=== PATIENT | female | born 1935 | race Caucasian/White ===

== ENCOUNTER 2016-09-26 10:30 | Outpatient (CLI) | payer MEDICARE, OTHER ==
[2015-09-18 06:17] VITALS: BP 133/76
--- NOTE | 2016-09-26 14:29 | Diagnostic Imaging Report ---
[facility] [address] [facility] [address] Report Submission Date: Sep 26, 2016 2:01:33 PM [employer] Patient Study Name: SHREYAS MURRAY Date: Sep 26, 2016 10:36:20 AM [employer] MRN: [id number] Modality Type: CR Gender: F Description: CHEST : 37 Institution: [facility] Physician REGGIE UNGER - OP Chest -two views CLINICAL HISTORY: Night sweats for 3 weeks. FINDINGS: Examination the chest in PA and lateral views with no prior examination for comparison demonstrates the lungs to be clear. Cardiovascular and mediastinal silhouettes are within normal limits for the patient's age. The aorta is atherosclerotic. Degenerative changes are seen in the thoracic vertebrae. IMPRESSION: Aortic atherosclerosis. No active disease. Electronically signed on Sep 26, 2016 2:01:33 PM LEGAL INTERNSHIP by: Zaheer CARRILLO
== END 2016-09-26 10:32 ==
LOC: RAD 10:30
PROVIDERS: ATTEND Family Medicine
DX: I70.0 Atherosclerosis of aorta (principal); R61 Generalized hyperhidrosis
CPT/HCPCS: 71020

== ENCOUNTER 2016-11-21 15:38 | Outpatient (CLI) | payer MEDICARE, OTHER ==
[2015-09-18 06:17] VITALS: BP 133/76
== END 2016-11-21 15:40 ==
LOC: LAB 15:38
PROVIDERS: ATTEND Family Medicine
DX: E03.9 Hypothyroidism, unspecified (principal)
CPT/HCPCS: 36415; 84443

== ENCOUNTER 2017-02-05 16:05 | Emergency (ER) | payer MEDICARE, OTHER ==
--- NOTE | 2017-02-05 18:00 | Diagnostic Imaging Report ---
[facility] [address] [facility].[address] [address] Report Submission Date: Feb 05, 2017 5:49:05 PM CDT Patient Study Name: SHREYAS MURRAY Date: Feb 05, 2017 5:14:03 PM CDT MRN: [id number] Modality Type: CR Gender: F Description: UPPER EXTREMITY : 37 Institution: [facility] Physician: ARSLAN SINGH - COLLEEN Right elbow 3 views Clinical history: Trauma There is soft tissue laceration the outer aspect of the right elbow . no visible fractures, dislocation or bone destruction . semi radiopaque 1 cm foreign bodies seen at the ulnar aspect of the elbow. Impression: Soft tissue laceration with possible radiopaque foreign body without visible fractures or bone destruction Electronically signed on Feb 05, 2017 5:49:05 PM CDT by: Bernard CARRILLO
--- NOTE | 2017-02-05 18:00 | Diagnostic Imaging Report ---
[facility] [address] [facility].[address] [address] Report Submission Date: Feb 05, 2017 5:50:10 PM CDT Patient Study Name: SHREYAS MURRAY Date: Feb 05, 2017 5:23:32 PM CDT MRN: [id number] Modality Type: CR Gender: F Description: PELVIS : 37 Institution: [facility] Physician: ARSLAN SINGH Right hip AP and oblique views Clinical history: Trauma Total right hip prostheses is noted and appear to be in good position. No fracture, dislocation or bone destruction . Impression: Total right hip prosthesis without visible fractures Electronically signed on Feb 05, 2017 5:50:10 PM CDT by: Bernard CARRILLO
--- NOTE | 2017-02-05 18:36 | ED Physician Documentation ---
Fall - HISTORIAN Historian: patient, spouse - [facility] Chief Complaint: Fall Additional Information: FELL; AT [facility] WHILE WALKING DOG W/[address] RASH SKIN SLIPPAGE RT ELBOW AND FOREARM AND W/PAIN RT HIP-HAD TOTAL HIP REPLACEMENT APPROX 1 YEAR AGO. ABLE TO GET UP FROM FALL AND WALK SATIS BUT W/PAIN IN THE HIP. ELBOW SL PAINFUL Onset: other Context: tripped, lost balance r: moderate Associated Symptoms:: no loss of consciousness Location of Pain/Injury: denies: head, neck, face Injury to Right Extremity: elbow, hip - ROS CONST: no problems. denies: recent illness, weakness NEURO: denies: dizziness MS/SKIN/LYMPH: other ([address] RASH RT ELBOW AND FOREARM). denies: weakness , numbness, neck pain, back pain, ankle swelling, leg swelling, rash CVS/RESP: none. denies: chest pain, shortness of breath - PAST HX Past History: other (HTN VARICOSE VEINS LO THRYOID GERD ) Allergies/Adverse Reactions: Allergies Allergy/AdvReac Type Severity Reaction Status Date / Time gabapentin Allergy Face Verified 09/11/15 14:43 Swelling ciprofloxacin [From Cipro] AdvReac Mild nausea Verified 09/09/15 15:37 ciprofloxacin HCl AdvReac Mild nausea Verified 09/09/15 15:37 [From Cipro] levofloxacin AdvReac Mild nausea Verified 09/09/15 15:37 Home Medications: Ambulatory Orders Medication Instructions Recorded Levothyroxine Sodium [Synthroid] 50 mcg PO D 09/03/15 Omeprazole [Prilosec] 20 mg PO D 09/03/15 - SOCIAL HX Smoking History: non-smoker Alcohol Use: none Drug Use: none - FAMILY HX Family History: no significant history - VITAL SIGNS Vital Signs: Vital Signs Temp Pulse Resp BP Pulse Ox 133/76 09/18/15 08:00 - REVIEWED ASSESSMENTS Nursing Assessment Reviewed: Yes Vitals Reviewed: Yes ED Results Lab/Radiology - Radiology Radiology Impressions: no fracture hip or elbow however rad sees possible foriegn body in skin tear lesion elbow. pt req [facility] for surgical consul and repoair. called DR RAMIREZ he will acccept for care. Fall Physical Exam - Physical Exam General Appearance: mild distress, moderate distress Head: non-tender, no swelling, no obvious injury Neck: non-tender, painless ROM Eye: AMANDA, EOMI ENT: nml external inspection Resp/CVS: chest non-tender, breath sounds nml, no resp. distress, heart sounds nml Abdomen: soft, non-tender Neuro: oriented x3, sensation nml, motor nml, mood/affect nml Skin: no rash, other ( AFOREMENTIONED) Back: normal inspection Joint: nml ROM (ELBOW SL STIFF AND PAINFUL TO MOTION-CONCERNED RE HIP) - [place] Coma Score Eyes Open: Spontaneous Speech: Oriented Motor: Obeys Commands Discharge Clincal Impression: fall w/hip and elbow injury, possible rad opaque for body elbow lacer, ation Referrals: Javi Mondragon MD [Primary Care Provider] - 2 Days Additional Instructions: pt req tns[facility] DR RAMIREZ for eval and group home Medications: Ambulatory Orders Levothyroxine Sodium [Synthroid] 50 mcg PO D 09/03/15 Omeprazole [Prilosec] 20 mg PO D 09/03/15 Condition: Good Disposition: 02 XFER [facility] Decision to Admit: NO Decision Time: 18:34
[2017-02-05] MEDS: traMADol HCL 50 MG TABLET PO ONE (18:40)
[2017-02-05 19:23] VITALS: BP 186/98
== END 2017-02-05 18:40 | disposition short-term general hospital (02) ==
LOC: ED 16:05
DX: S51.021A Laceration with foreign body of right elbow, initial encounter (principal); W20.8XXA Other cause of strike by thrown, projected or falling object, initial encounter; Y93.K1 Activity, walking an animal; Y99.9 Unspecified external cause status
CPT/HCPCS: 73080; 73502; 99283

== ENCOUNTER 2017-06-05 15:00 | Outpatient (CLI) | payer MEDICARE, OTHER ==
[2017-06-05 15:24] LABS: EOSINOPHILS % 2.6 % (0.0-6.8); MEAN CORPUSCULAR HEMOGLOBIN 30.3 pg (28.0-34.0); MEAN CORPUSCULAR VOLUME 91.8 fl (80.0-100.0); MONOCYTES % 4.1 % (0.0-11.0); NEUTROPHILS # 2.3 # k/uL (1.4-7.7)
[2017-06-05 16:03] LABS: eGFR (African) > 60; eGFR (Non-African) > 60
== END 2017-06-05 15:03 ==
LOC: LAB 15:00
PROVIDERS: ATTEND Family Medicine
DX: E03.9 Hypothyroidism, unspecified (principal); Z00.00 Encounter for general adult medical examination without abnormal findings
CPT/HCPCS: 36415; 80053; 80061; 83036; 84443; 85025

== ENCOUNTER 2017-10-10 14:01 | Outpatient (CLI) | payer MEDICARE, OTHER | END 2017-10-10 14:15 | LOC: POD 14:01 | PROVIDERS: ATTEND Podiatrist | DX: M20.42 Other hammer toe(s) (acquired), left foot (principal); G60.3 Idiopathic progressive neuropathy; L84 Corns and callosities | CPT/HCPCS: G0463 ==

== ENCOUNTER 2018-04-12 08:53 | Outpatient (CLI) | payer MEDICARE, OTHER ==
[2018-04-12 09:33] LABS: eGFR (Non-African) > 60
--- NOTE | 2018-04-12 18:14 | Diagnostic Imaging Report ---
REGGIE UNGER [facility] [address] [facility] [address] [address] Report Submission Date: Apr 12, 2018 12:22:59 PM CDT Patient Study Name: SHREYAS MURRAY Date: Apr 12, 2018 9:34:39 AM CDT Modality Type: CT Gender: F Description: CT ABD PELVIS W/ CON : 37 Institution: [facility] Physician: REGGIE UNGER CT abdomen and pelvis with contrast History: Generalized abdominal pain, worse after eating Technique: Helically acquired images were obtained from the hemidiaphragms to the pelvic floor following IV but no oral contrast. Findings: Clips from a cholecystectomy are present. The liver, especially the left hepatic lobe, is mildly enlarged. No focal hepatic masses are noted and there is no intrahepatic biliary ductal dilatation. No pancreatic abnormalities are noted. The spleen, adrenal glands and the left kidney are unremarkable. Projecting exophytically from the upper pole of the right kidney, there is a 4.5 cm simple cyst. The patient is cachectic. Small and large bowel loops are normal in caliber. The abdominal aorta is atherosclerotic but not aneurysmal. Assessment through the pelvis is limited secondary to beam hardening artifact associated with a right hip replacement. There is moderate dextroscoliosis of the thoracolumbar spine. There is moderate disc space narrowing at L3/4. Vertebral body height is maintained. Impression: The patient is cachectic with no intra-abdominal or intrapelvic fat which could limit assessment for subtle inflammatory processes. Mild hepatomegaly, especially of the left hepatic lobe. Status post cholecystectomy. Simple 4.5 cm right renal cyst. Aortic atherosclerosis. Assessment through the pelvis is limited secondary to beam hardening artifact associated with a right hip replacement. Electronically signed on Apr 12, 2018 12:22:59 PM CDT by: Radha CARRILLO
== END 2018-04-12 08:54 ==
LOC: RAD 08:53
PROVIDERS: ATTEND Family Medicine
DX: R10.84 Generalized abdominal pain (principal); R62.7 Adult failure to thrive; Z13.9 Encounter for screening, unspecified
CPT/HCPCS: 36415; 74177; 82565; Q9967

== ENCOUNTER 2018-04-30 10:27 | Day surgery (SDC) | payer MEDICARE, OTHER ==
[~2018-04-30 10:27] MED LIST: LACTATED RINGERS 1,000 ML IV.SOLN IV ONE; PROPOFOL 200 MG/20 ML VIAL IV ONE; SALINE FLUSH 10 ML DISP.SYRIN IVF ONE
--- NOTE | 2018-05-01 09:28 | GI Report ---
REFERRING PHYSICIAN: Dr. Javi Mondragon SCREEDMAN: Salazar Bond MD PROCEDURE MEDICATION: Propofol as per anesthesia. INDICATIONS: Patient is an 83-year-old woman who has had anorexia, weight loss, and a lot of difficulty with bowel regularity and constipation. She says she does not have an appetite but usually does not vomit. She did have significant gastritis back in February 2008. There is also not much motility, question of some gastroparesis. Biopsy showed no evidence of celiac disease. She did have, again, atrophic gastritis with erosions. At that time, we recommended stopping non-steroidal's and was on a low-dose PPI and Carafate at bedtime. She has had problems with her colon. About 10 years ago, she had diverticulitis. She had a temporary colostomy and then takedown with 3 different surgeries. She has also had a hysterectomy. Her only medications include lisinopril 10 mg daily and Synthroid. She is on omeprazole 20 mg b.i.d. She does take occasional tramadol for back pain but not on a daily basis. A recent CAT scan on April 12 showed mild hepatomegaly especially of the left lobe, but nothing specific, and was mildly enlarged and no focal lesion. No biliary dilatation. There is a 4.5 cm cyst in the right kidney. There was some narrowing at L3-L4 space. The abdominal aorta is atherosclerotic but not aneurysmal. She has had a right hip replacement. On examination, she is very thin. Skin is very, very dark ordaz. There are no areas of vitiligo. Family says this is the normal coloration for her. PROCEDURE PERFORMED: Colonoscopy and polypectomy. PROCEDURE: An Olympus video colonoscope was advanced to the rectum. Prep was fair to poor. 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 It took some maneuvering to finally reach the base of the cecum. We lavaged that area to see. The appendiceal orifice and ileocecal valve were normal. At the hepatic flexure, there was a 3 mm to 4 mm polyp, benign appearing, removed with a cold snare. The main part of the transverse colon and descending colon, again, prep was only fair, she had atonic redundant colon. No obstruction. 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 Retroflexion of the rectum was normal. FINDINGS: 1. Atonic redundant colon. 2. Fair to poor prep. 3. Polyp removed near the hepatic flexure. RECOMMENDATIONS: 1. I do not see anything to explain her weight loss. Again, one worries is there something metabolic. It may be worthwhile getting a serum cortisol level to make sure she has not developed [place]'s disease. 2. She probably does not need to be on omeprazole 20 mg twice a day because she has atrophic gastritis. We will try cutting her to just a once-a-day dose. 3. Take an antacid at bedtime if needed. 4. Small frequent meals. 5. She is to follow up with Dr. Mondragon at his office. cc: Dr. Javi Mondragon [facility]ITAL[facility]ristain
== END 2018-04-30 10:30 ==
LOC: OPSURG 10:27
PROVIDERS: ATTEND Internal Medicine Gastroenterology
DX: D12.3 Benign neoplasm of transverse colon (principal); K59.8 Other specified functional intestinal disorders
CPT/HCPCS: 45385; 88305; J2704; J7120; S1016